=== PATIENT | male | born 1950 | race Caucasian/White ===

== ENCOUNTER 2016-06-04 05:15 | Observation (INO) | payer OTHER ==
[~2016-06-04] VITALS: Ht 185.4 cm; Wt 90.7 kg
--- NOTE | ~2016-06-04 | EKG ---
[address] [address] ELECTROCARDIOGRAM REPORT Name: MARK PACKSTEPHANIE Valdivia Room #: [address] [place] [address]#: [id number] Admission: 06/04/16 Attend Phys: Asael White MD Discharge: Date of : 50 Report #: [id number] THIS REPORT FOR: //name// 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
--- NOTE | ~2016-06-04 | S ---
[facility] [place] [address] SURGICAL PATH RPT PROCEDURE Name: ISAIAH LUJAN Room #: 424-P [facility] Liliana Ventura#: [id number] Admission: 06/04/16 Date of : 50 Discharge: 06/05/16 Report #: [id number] Path Case #: [id number] PATHOLOGY REPORT COLLECTION DATE: 06/04/2016 RECEIVED DATE: 06/04/2016 SUBMITTING PHYS: Dr. Asael White OTHER PHYS: Dr. Nate Orellana ADDENDUM REPORT (Order Date: 06/09/2016 15:44) ADDENDUM COMMENT: Properly controlled special stains are performed. (Block A5) AFB: negative for acid-fast bacilli GMS: negative for fungal organisms The final diagnosis remains unchanged. (CLW:; d/t: 06/09/16) Professional services performed by [facility] at [facility] [address], [place] [address] Technical services performed by [facility] at [address] [place] [address], [address] [place] [address]. ELECTRONICALLY SIGNED BY: Manju Deras M.D. 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 (see comment) COMMENT: Clinical correlation is recommended. Special stains for AFB and GMS are pending, and will be reported as an addendum. (CLW:; d/t: 06/05/16) PATHOLOGIST: Manju Deras M.D. REPORT ELECTRONICALLY SIGNED BY: Manju Deras M.D. DATE/TIME: 06/05/2016 16:41 * * * * * * * * * * * * [address] [address] SURGICAL PATH RPT PROCEDURE Name: ISAIAH LUJAN Room #: 424-P [facility].#: [id number] Admission: 06/04/16 Date of : 50 Discharge: 06/05/16 Report #: [id number] Path Case #: [id number] GROSS PATHOLOGY: Received in formalin labeled "Isaiah Lujan, prostate tissue," is a 28 gram, 8.3 x 7.8 x 2.9 cm aggregate of multiple irregular segments of nodular donis tissue. The specimen is submitted representatively in cassette A1 through A7. (CAA; 06/04/2016) CLINICAL HISTORY: BPH INITIAL CPT CODE(S): A; 96901, 30340, 75030 Professional services performed by [facility] at [address] , [place] [address] Technical services performed by [facility] at [address] [place] [address]., [address] [address]. [facility] [address] [address] PHONE: [phone] DIRECTOR: Toney Priest M.D. * * * END OF REPORT * * *
--- NOTE | ~2016-06-04 | HC ---
[facility] [place] [address] CONSULTATION Name: MARK PACKSTEPHANIE Valdivia Room #: 424-P [facility] Liliana Ventura#: [id number] Admission: 06/04/16 Attend Phys: Asael White MD Discharge: 06/05/16 Date of : 50 Report #: [id number] THIS REPORT FOR: //name// CC: Asael Orellana REASON FOR CONSULTATION: Consult has been requested by Dr. White for management of diabetes. HISTORY OF PRESENT ILLNESS: The patient is a 65-year-old male with recent diagnosis of diabetes and was admitted today by Dr. White for cystoscopy and transurethral resection of prostate. The patient has a history of BPH, was recently admitted for obstructive uropathy. The patient underwent TURP earlier this morning. The patient is seen in the room. Family is at bedside. The patient received pain medications earlier and is sleeping at present. History was obtained by talking to the family and also reviewing his previous admission. The patient was admitted in 05/2015 for acute urinary retention and hyperglycemia. He had a hemoglobin A1c of 10.2. He was started on glyburide and metformin. Apparently he was followed up with his PCP and his metformin was increased from 500 b.i.d. to 1000 b.i.d. They have kept a log of his blood sugar which was reviewed by me. The patient's blood sugar had been fairly well controlled at home. The patient is at present sleeping and is lethargic following his pain medications and unable to give me any review of systems. REVIEW OF SYSTEMS: Unable to obtain because he is sleeping. PAST MEDICAL HISTORY: Significant for diabetes, BPH, obstruction. He has a past history of knee repair, appendectomy UTI, urinary retention. SOCIAL HISTORY: He is a former smoker, no alcohol abuse or illicit drug abuse. The patient lives with his . HOME MEDICATIONS: Reviewed, please look at the nursing documentation. ALLERGIES: No known drug allergy. FAMILY HISTORY: Significant for diabetes. PHYSICAL EXAMINATION: VITAL SIGNS: Blood pressure 134/74, heart rate of 60 per minute, afebrile. GENERAL: The patient is sleeping. NECK: No JVD noted. CARDIOVASCULAR: S1, S2, negative S3. CHEST: Bilateral air entry present. Clear on auscultation. ABDOMEN: Soft. Bowel sounds present. PERIPHERY: No pedal edema. [address] [address] CONSULTATION Name: HEIDY PACK Room #: [facility]-P [facility] Liliana Ventura#: [id number] Admission: 06/04/16 Attend Phys: Asael White MD Discharge: 06/05/16 Date of : 50 Report #: [id number] NEUROLOGICAL: Did not test for neurological examination. LABORATORY DATA: No recent labs noted. Labs are from 05/18/2016, his white count is normal at ____, hemoglobin is 13, platelets 139. Chemistry showed a creatinine of 1.0 on 05/18/2016. ASSESSMENT AND PLAN: 1. Diabetes. The patient will be placed on sliding scale insulin. We will check his Accu-Chek before meal and bedtime. He will be continued on glyburide. We will restart him back on his metformin. He is able to tolerate p.o. well. 2. Status post transurethral resection of prostate, postoperative course as per Dr. White. 3. Deep venous thrombosis prophylaxis. He will be on SCD on the left for DVT prophylaxis. 4. History of acute kidney injury in May 2016. We will repeat his labs in the morning. Treatment plan has been explained to the family at bedside in detail. <ELECTRONICALLY SIGNED> By: Alireza Weston MD 06/05/16 1241 1418 1825 Alireza Weston MD /nt
--- NOTE | ~2016-06-04 | H ---
[facility] [place] [address] [place] [address] HISTORY AND PHYSICAL Name: HEIDY PACK Skip Room #: 424-P [facility] Liliana Ventura#: [id number] Admission: 06/04/16 Attend Phys: Asael White MD Discharge: 06/05/16 Date of : 50 Report #: [id number] THIS REPORT FOR: //name// CC: Nikolas Orellana MD AMENDED REPORT - SEE BELOW PREOPERATIVE DIAGNOSIS: Urinary retention secondary to benign prostatic hypertrophy. HISTORY OF PRESENT ILLNESS: The patient is a 65-year-old gentleman who was hospitalized May 2016 to [facility] with acute urinary retention and urinary tract infection. The patient prior to that had prostatitis and longstanding BPH with obstruction and was on medical therapy in the form of Flomax. He has had an indwelling Monk catheter since hospitalization. He also was noted during that hospital stay to have new diagnosis of diabetes mellitus with markedly high blood sugar level in the 700 range. The patient has now been medically managed and has stabilization of his diabetes on insulin regimen. He presents for definitive treatment of his urinary retention in the form of prostatic resection. PAST MEDICAL HISTORY: Pertinent for BPH, degenerative arthritis. PAST SURGICAL HISTORY: Includes arthroscopic knee procedure, remote appendectomy. MEDICATIONS: Baseline medications include Flomax and aspirin and currently insulin; aspirin has been withheld preoperatively. FAMILY HISTORY: Pertinent for BPH with obstruction in his bladder. Father is unknown. SOCIAL HISTORY: The patient does not use alcohol, tobacco products or recreational drugs. ALLERGIES: None known. PHYSICAL EXAMINATION: GENERAL: The patient is robust, well developed. HEENT: Grossly normal. NECK: Supple, without lymphadenopathy. LUNGS: Clear. CARDIOVASCULAR: Regular rate and rhythm without murmur. ABDOMEN: Soft, palpably benign. GENITOURINARY: Penis is circumcised without lesion. Monk catheter indwelling. Testes normal. Prostate is an estimated [address] [facility] [address] [place] [address] HISTORY AND PHYSICAL Name: HEIDY PACK Room #: 424-P [facility].#: [id number] Admission: 06/04/16 Attend Phys: Asael White MD Discharge: 06/05/16 Date of : 50 Report #: [id number] NEUROMUSCULAR: Nonfocal. IMPRESSION: Benign prostatic hypertrophy with obstruction and urinary retention. PLAN: Cystoscopy, transurethral resection of prostate. DISCUSSION: I have discussed the procedure with attendant risk of bleeding and infection, postoperative incontinence and the possibility of persistent retention despite procedure. The patient understands these issues and opts to proceed as planned. AMENDED - 06/09/16 REPORT ORIGINALLY E.SIGNED - 06/04/16 @ 0736 Report was edited to correct error in Family History. <ELECTRONICALLY SIGNED> By: Asael White MD 06/11/16 1417 1051 1112 Asael White MD /nt
--- NOTE | ~2016-06-04 | O ---
[facility] [place] [address] OPERATIVE REPORT Name: HEIDY PACK Room #: 424-P [facility] Lorenzo#: [id number] Admission: 06/04/16 Attend Phys: Asael White MD Discharge: Date of : 50 Report #: [id number] THIS REPORT FOR: //name// CC: Asael Orellana MD DATE OF SERVICE: 06/04/2016 PREOPERATIVE DIAGNOSES: Benign prostatic hypertrophy with obstruction with urinary retention, possible prostatic carcinoma. POSTOPERATIVE DIAGNOSES: Benign prostatic hypertrophy with obstruction with urinary retention, possible prostatic carcinoma. PROCEDURE: Cystoscopy, transurethral resection of prostate. ANESTHESIA: General by laryngeal mask. INDICATION FOR STUDY: The patient is a 65-year-old gentleman, recently was hospitalized at [facility] with newly diagnosed diabetes mellitus and development of urinary retention. Prior to that time, he developed acute bacterial prostatitis and urinary retention, despite being on medical therapy. He has had a longstanding history of bladder outlet obstructive symptoms. His PSA was quite elevated at 90, which was felt secondary to bacterial prostatitis. Carcinoma could not be excluded. The patient had failed voiding trials, given retention. He is undergoing a transurethral resection of prostate in hopes of restoring of bladder function. His urinary tract infection being treated by prolonged course of antibiotics prior to surgical intervention, diabetes mellitus, now controlled with insulin regimen. SUMMARY OF THE PROCEDURE AND FINDINGS: First, the patient was given a general anesthetic by laryngeal mask in the dorsal lithotomy position. He was prepped with Betadine and draped sterilely. A rectal sheath was in place to facilitate manipulation of the prostate during the resection process. A 21-Georgian Wappler panendoscope was introduced into the bladder and confirmed bilobar hyperplasia of the prostate, which is visually obstructing. The bladder is prominently trabeculated without evidence of foreign body, tumor, or stone. The ureteral orifices were singular and bilaterally and normal in orientation. A 26-Georgian Menard resectoscope sheath was introduced into the bladder. Transurethral resection of the prostatic adenoma was carried out in several stages. Adenomatous tissue being resected at the level of surgical capsule. The verumontanum and external sphincter was spared from the resection process. An TravelZeeky evacuator used to evacuate prostatic tissue from the bladder, all of which is submitted for pathological analysis. Hemostasis was obtained in the [address] [address] OPERATIVE REPORT Name: HEIDY PACK Skip Room #: 424-P [facility] Liliana Ventura#: [id number] Admission: 06/04/16 Attend Phys: Asael White MD Discharge: Date of : 50 Report #: [id number] prostate fossa using cauterization, and once completed, a 24-Georgian 3-way Monk catheter was placed to close dependent drainage connected to continuous bladder irrigation with normal saline. The patient was awakened from anesthesia and transferred to the recovery room, whereupon he arrives in satisfactory condition. No complications being appreciated. <ELECTRONICALLY SIGNED> By: Asael White MD 06/05/16 0914 0838 1030 Asael White MD /nt
[~2016-06-04 05:15] MED LIST: ASPIR 8181 MG PO; CIPRO250 M1 PO; FLOMAX0.4 MG PO; GLIPIZIDE 5 MG T5 MG PO; GLUCOPHAGE500 MG PO; GLUCOTROL5 MG PO; METFORMIN HCL500 MG PO
[2016-06-04 07:27] VITALS: BP 108/81
[2016-06-04] MEDS ORDERED: FLOMAX0.4 MG PO (07:38)
[2016-06-04 10:05] VITALS: BP 167/81
[2016-06-04 10:35] VITALS: BP 134/74
[2016-06-04 16:13] VITALS: BP 116/69
[2016-06-04 20:00] VITALS: BP 125/76
[2016-06-05 04:00] VITALS: BP 118/75
[2016-06-05 05:05] LABS: ABSOLUTE NEUTROPHILS 7.2 thou/uL (1.4-8.2); BASOPHILS 0.4 % (0.0-2.0); EOSINOPHILS 1.7 % (0.0-3.0); HEMOGLOBIN 13.4 gm/dL (14.0-18.0); LYMPHOCYTES 25.5 % (24.0-44.0); MCH 28.4 pg (26.0-34.0); MCHC 32.8 % (28.0-37.0); MCV 86.8 fL (80.0-100.0); MONOCYTES 7.9 % (1.0-8.0); PLATELET COUNT 183 thou/uL (150-400); POLYS 64.5 % (36.0-66.0); RBC 4.73 mil/uL (4.50-6.00); RDW 13.7 % (10.5-14.5); WBC 11.1 thou/uL (4.0-11.0)
[2016-06-05 05:13] LABS: CALCIUM 8.6 mg/dL (8.5-10.1); CREATININE 1.1 mg/dL (0.6-1.3); POTASSIUM 4.1 mmol/L (3.5-5.1)
[2016-06-05 05:51] LABS: MANUAL DIFF NO
[2016-06-05 08:21] VITALS: BP 118/74
[2016-06-05 10:36] VITALS: BP 118/74
[2016-06-05] MEDS ORDERED: URIBEL CAPSULE1 EACH PO (10:48)
[2016-06-05] MEDS ORDERED: DURICEF PO (10:51)
== END 2016-06-05 12:18 | disposition home or self-care (01) ==
LOC: TBA 05:15 → OR 05:15 → TBA 05:16 → OR 10:11 → 4E 10:12 → OR 15:26 → 4E 06-05 12:18
PROVIDERS: Internal Medicine
DX: N40.0 Benign prostatic hyperplasia without lower urinary tract symptoms (principal); R33.8 Other retention of urine; Z98.890 Other specified postprocedural states; Z79.899 Other long term (current) drug therapy; Z79.82 Long term (current) use of aspirin
CPT/HCPCS: 50010; 50101; 52254; 56815; 57002; 62110; 62900; 70005

== ENCOUNTER → 2020-02-16 | Outpatient (CLI) | payer OTHER ==
[~2020-02-16] MED LIST changes: +DURICEF PO; +GLUCOPHAGE1000 MG PO; +URIBEL CAPSULE1 EACH PO; +VITAMIN D5000 UNI1 PO
== END ==
LOC: LAB 12:12
PROVIDERS: ATTEND Orthopaedic Surgery
DX: Z01.812 Encounter for preprocedural laboratory examination (principal); Z20.828 Contact with and (suspected) exposure to other viral communicable diseases

== ENCOUNTER 2020-02-20 07:47 | Day surgery (SDC) | payer OTHER ==
[2020-02-16 11:09] LABS: HEMATOCRIT 50.3 % (42.0-52.0); HEMOGLOBIN 16.4 gm/dL (14.0-18.0); MCH 29.9 pg (26.0-34.0); MCHC 32.6 g/dL (28.0-37.0); MCV 91.7 fL (80.0-100.0); RBC 5.49 mil/uL (4.50-6.00); RDW 14.5 % (10.5-14.5); WBC 7.6 thou/uL (4.0-11.0)
[2020-02-16 11:32] LABS: PROTIME 10.3 Seconds (9.3-11.4)
[2020-02-16 11:48] LABS: URINE BILIRUBIN NEGATIVE (Negative); URINE BLOOD NEGATIVE (Negative); URINE CLARITY CLEAR; URINE COLOR YELLOW; URINE GLUCOSE-RANDOM* NEGATIVE (Negative); URINE KETONES NEGATIVE (Negative); URINE LEUKOCYTES-REFLEX NEGATIVE (Negative); URINE NITRITE-REFLEX NEGATIVE (Negative); URINE PROTEIN (DIPSTICK) NEGATIVE (Negative); URINE SPECIFIC GRAVITY 1.025 (1.005-1.035); URINE UROBILINOGEN 0.2 E.U./dl (0.2-1.0)
[2020-02-16 12:34] LABS: ALBUMIN 4.1 g/dL (3.4-5.0); CALCIUM 9.5 mg/dL (8.5-10.1); CREATININE 1.2 mg/dL (0.7-1.3)
--- NOTE | 2020-02-16 16:05 | EKG ---
[facility] [place] [address] [place] [address] ELECTROCARDIOGRAM REPORT Name: HEIDY PACK Room #: PRE [facility]#: [id number] Admission: Attend Phys: Frederick Cook MD Discharge: Date of : 50 Report #: [id number] THIS REPORT FOR: cc: Frederick Fletcher,Jose Villanueva MD [facility] ~ THIS REPORT FOR: //name// [facility] Test Date: 2020-02-16 Test Time: 10:53:31 Pat Name: HEIDY PACK Department: Room: Gender: Grinder Hand: CHRISTIANO FAY : 1950 Requested By: Frederick Cook Order Number: [id number] MD: Jose Nunes Measurements Intervals [place] Rate: 68 P: 8 CO: 168 QRS: -4 QRSD: 79 T: 76 QT: 381 QTc: 406 Interpretive Statements Sinus rhythm Probable left atrial enlargement J-Point elevation inferior leads Compared to ECG 06/04/2016 06:53:43 Electronically Signed On 02-16-2020 16:05:43 CDT by Jose Nunes [email or web address] <ELECTRONICALLY SIGNED> By: Jose Nunes MD, FAC 02/16/20 1605 1053 1053 Jose Nunes MD, [facility] /EPI
[2020-02-20] VITALS (13 sets, daily range): BP systolic 130–168; BP diastolic 62–87
[~2020-02-20] VITALS: Ht 185.4 cm; Wt 89.8 kg
--- NOTE | 2020-02-20 15:08 | NUR ---
Pt came to unit from PACU. A&ox4. Dressing c/d/i. Pain controlled with prn pain meds. Tolerated diet well. IVF infusing. ANTHONY dressing. NHI hose and SCDs in place. Calll light within reach. Fall precautions in place. Family at bedside. Will continue to monitor.
--- NOTE | 2020-02-21 02:34 | NUR ---
PT DENIED PAIN SO FAR.DRSG TO HIS L KNEE C/D/I.URINAL AT BEDSIDE WITH GOOD OUTPUT.BG MONITORED WAS 173 AT HS.PT CONT ON IV ABX.PT ABLE TO MAKE HIS NEEDS KNOWN.PT SLEEPING ON HIS BED AT THIS TIME.CALL LIGHT WITHIN REACH.
[2020-02-21 04:09] VITALS: BP 132/77
--- NOTE | 2020-02-21 07:38 | O ---
[facility] [place] [address] [place] [address] OPERATIVE REPORT Name: HEIDY PACK Room #: 442-P [facility]..#: [id number] Admission: 02/20/20 Attend Phys: Frederick Cook MD Discharge: Date of : 50 Report #: [id number] THIS REPORT FOR: cc: Frederick Fletcher David J. DO Clymer, David J. MD ~ CC: Frederick Fletcher DATE OF SERVICE: 02/20/2020 PREOPERATIVE DIAGNOSIS: Degenerative arthritis, left knee with varus malalignment. POSTOPERATIVE DIAGNOSIS: Degenerative arthritis, left knee with varus malalignment. PROCEDURE: Left knee medial hemiarthroplasty using Biomet [place] knee system. SURGEON: Frederick Cook MD INDICATIONS: This 69-year-old gentleman has moderate degenerative arthritis with varus malalignment and significant medial compartment narrowing in both knees. He underwent a right knee medial hemiarthroplasty 2 years ago with good result. He is anxious now to go ahead with left hemiarthroplasty. DESCRIPTION OF PROCEDURE: The patient was taken to the operating room where he was placed under general anesthesia. Prophylactic intravenous antibiotics were administered. The left knee and leg were meticulously prepped and draped and a thigh tourniquet inflated to 300 mmHg. An anterior longitudinal skin incision was made just medial to the patella, extending to the medial tibial plateau. This was extended into the joint. The medial meniscus remnant was excised. Good exposure was established. The tibial cutting guide outrigger was placed and the medial tibial plateau cut was made. The joint space was assessed and it was still slightly narrow, an additional 2 mm were removed. This seemed to be a very satisfactory cut level with a satisfactory alignment. Attention was then directed to the femur. Appropriate cuts were made and the extension and flexion spaces were nicely balanced and did not require any additional shortening of the femoral condyle. The tibia was best suited for a size C and the femur best suited for a medium femoral component. A trial reduction was performed and a 4 or 5 mm insert seemed to fit nicely. This resulted in satisfactory knee flexion and full knee extension with significant correction in the preoperative varus malalignment. The appropriate anchor holes were created for the tibial component. The surfaces were thoroughly irrigated. The permanent components were brought up on [address] [address] OPERATIVE REPORT Name: HEIDY PACK Room #: 442-P [facility].#: [id number] Admission: 02/20/20 Attend Phys: Frederick Cook MD Discharge: Date of : 50 Report #: [id number] to the field. Methyl methacrylate cement was mixed and injected into the porous surface of the tibia. The Biomet left size C tibial baseplate was then inserted. It was impacted into position and seated nicely. Excess cement was removed around its margin. The size medium left femoral component was then also impacted into position using appropriate anchor holes and cement. Excess cement was removed from around its margin as well. A spacer was trialled and the size 5-mm meniscal bearing seated nicely and allowed full knee extension and full flexion with good stability. The permanent Biomet [place] left size 5 meniscal bearing was then brought into the field and snapped in the joint. Range of motion, alignment and stability were assessed and felt to be satisfactory. The tourniquet was deflated after a total tourniquet time of 50 minutes. The knee was copiously irrigated. Good hemostasis was confirmed. The fascia was closed with 0 Vicryl. The subcutaneous tissues were closed with 2-0 Monocryl. The skin was closed with skin art. A sterile dressing was applied. The patient was awakened and returned to recovery room in good condition. <ELECTRONICALLY SIGNED> By: Frederick Cook MD 02/21/20 0738 1108 1133 Frederick Cook MD /nt
[2020-02-21] MEDS ORDERED: NORCO 7.5-3251 EACH PO (07:48)
[2020-02-21 09:20] VITALS: BP 148/88
--- NOTE | 2020-02-21 09:52 | NUR ---
ASSESSMENT: CM REVIEWED CHART AND MET WITH PATIENT. PT IS ALERT AND ORIENTED X4. PT IS HERE S/P LEFT KNEE MEDIAL ARTHROPLASTY. PT REPORTS THAT HE LIVES IN A HOUSE WITH HIS . PT REPORTS HAVING TWO STEPS TO ENTER THROUGH THE FRONT DOOR AND NO STEPS IF HE ENTERS THROUGH THE GARAGE. PT REPORTS HAVING ABOUT 13 STEPS TO THE UPPER FLOOR BUT ALSO REPORTS HAVING A STAIR GLIDE. PT STATES HE HAS A WALKER AT HOME WELL A CANE AND ROLLATER WALKER. PT REPORTS THE HAS BEEN TO [facility] IN THE PAST BUT CURRENTLY DOES NOT HAVE ANYTHING ARRANGED. PT/OT IS TO WORK WITH PATIENT. CM WILL CONTINUE TO FOLLOW TO ASSIST NEEDED.
--- NOTE | 2020-02-21 10:48 | NUR ---
Assumed care of pt at 0700. Pt a&ox4. Pain controlled with prn pain meds. Dressing c/d/i. NHI hose and SCDs in place. Pt will discharge to home today after 2 sessions of physical therapy. Call light within reach. Will continue to monitor.
[2020-02-21 13:59] VITALS: BP 148/88
--- NOTE | 2020-02-22 08:18 | HC ---
[facility] [place] [address] [place] [address] CONSULTATION Name: HEIDY PACK Room #: [facility]P [facility].#: [id number] Admission: 02/20/20 Attend Phys: Frederick Cook MD Discharge: 02/21/20 Date of : 50 Report #: [id number] THIS REPORT FOR: cc: Frederick Fletcher David J. DO Clymer, David J. MD ~ CC: Frederick Fletcher DATE OF SERVICE: 02/21/2020 FINAL DIAGNOSES: End-stage degenerative arthritis, left knee. Type 2 diabetes. OPERATIONS AND PROCEDURES: Left knee medial hemiarthroplasty. HISTORY: This slender, active and fit 69-year-old gentleman has problems with bilateral knee arthritis. Symptoms are principally at the medial joint line, combined with moderate varus malalignment. He underwent right knee medial hemiarthroplasty 2 years ago with good result. He returns now for left knee medial hemiarthroplasty. HOSPITAL COURSE: The patient went to the operating room on 02/19. He underwent left knee medial hemiarthroplasty. He tolerated this nicely. Postoperatively, he was moderately uncomfortable and required significant analgesics and was not yet safe and stable for ambulation. We elected to keep him overnight for observation and therapy. This morning, he is feeling much better. His pain is well controlled on oral analgesics. He is resuming a regular diet. He has not yet been up with therapy this morning, but he does feel that he will be able to manage and ambulate. He is anxious for discharge home today. His discharge medications include hydrocodone 7.5 mg q. 4 hours p.r.n. for pain, metformin 1000 mg b.i.d., aspirin 81 mg daily. He will call me should there be any problems or questions. I will plan to see him back in my office in 1 week for followup. <ELECTRONICALLY SIGNED> By: Frederick Cook MD 02/22/20 0818 0753 0815 Frederick Cook MD /nt
== END 2020-02-21 15:37 | disposition home or self-care (01) ==
LOC: OR 07:47 → TBA 07:47 → OR 09:35 → 4S 12:22 → OR 14:34
PROVIDERS: ATTEND Orthopaedic Surgery
DX: M17.12 Unilateral primary osteoarthritis, left knee (principal); M21.162 Varus deformity, not elsewhere classified, left knee; E11.9 Type 2 diabetes mellitus without complications; F17.210 Nicotine dependence, cigarettes, uncomplicated; Z96.651 Presence of right artificial knee joint; Z98.890 Other specified postprocedural states; Z90.49 Acquired absence of other specified parts of digestive tract; Z79.899 Other long term (current) drug therapy; Z79.82 Long term (current) use of aspirin
CPT/HCPCS: 10102; 50010; 50101; 50415; 51130; 51225; 51412; 51771; 56525; 57095; 57103; 57180; 57254; 58111; 62110; 62900; 64039; 70005